=== PATIENT | male | born 1940 | race Caucasian/White ===

== ENCOUNTER → 2022-04-14 | Outpatient (CLI) | payer BC | LOC: RAD 09:45 | DX: R74.8 Abnormal levels of other serum enzymes (principal) ==

== ENCOUNTER → 2023-06-27 | Outpatient (CLI) | payer BC ==
[2023-06-27 10:50] LABS: HEMATOCRIT 47.5 % (42.0-52.0); HEMOGLOBIN 15.9 g/dL (13.5-18.0)
== END ==
LOC: LAB 10:25
PROVIDERS: Family Medicine
DX: E83.119 Hemochromatosis, unspecified (principal)

== ENCOUNTER → 2023-08-02 | Outpatient (CLI) | payer BC ==
[2023-09-21 12:20] LABS: HEMATOCRIT 46.4 % (42.0-52.0); HEMOGLOBIN 15.6 g/dL (13.5-18.0)
== END ==
LOC: LAB 10:35
PROVIDERS: Family Medicine
DX: E83.119 Hemochromatosis, unspecified (principal)

== ENCOUNTER → 2023-08-30 | Outpatient (CLI) | payer BC ==
[2023-08-30 13:18] LABS: HEMOGLOBIN 15.4 g/dL (13.5-18.0)
== END ==
LOC: LAB 13:09
PROVIDERS: Family Medicine
DX: E83.119 Hemochromatosis, unspecified (principal)

== ENCOUNTER → 2023-11-08 | Outpatient (CLI) | payer BC ==
[2023-11-08 11:19] LABS: HEMATOCRIT 44.7 % (42.0-52.0); HEMOGLOBIN 15.2 g/dL (13.5-18.0)
== END ==
LOC: LAB 10:58
PROVIDERS: Family Medicine
DX: E83.119 Hemochromatosis, unspecified (principal)

== ENCOUNTER → 2023-12-05 | Outpatient (CLI) | payer MEDICARE ==
[2023-12-05 12:14] LABS: HEMATOCRIT 45.2 % (42.0-52.0); HEMOGLOBIN 15.1 g/dL (13.5-18.0)
== END ==
LOC: LAB 12:05
PROVIDERS: Family Medicine
DX: E83.119 Hemochromatosis, unspecified (principal)

== ENCOUNTER → 2024-02-08 | Outpatient (CLI) | payer MEDICARE ==
[~2024-02-08] VITALS: Ht 175.3 cm; Wt 86.4 kg
[~2024-02-08] MED LIST: KLONOPIN 1MG1 MG PO
[2024-02-08 15:44] LABS: HEMATOCRIT 47.4 % (42.0-52.0); HEMOGLOBIN 15.8 g/dL (13.5-18.0)
[2024-02-08 15:53] VITALS: BP 173/79
[2024-02-08 16:39] VITALS: BP 144/77
== END ==
LOC: AMSURD 15:04
PROVIDERS: Family Medicine
DX: E83.119 Hemochromatosis, unspecified (principal)

== ENCOUNTER → 2024-03-21 | Outpatient (CLI) | payer MEDICARE ==
[~2024-03-21] VITALS: Ht 175.3 cm; Wt 86.4 kg
[2024-03-21 12:50] VITALS: BP 145/80
[2024-03-21 13:15] LABS: HEMATOCRIT 45.4 % (42.0-52.0); HEMOGLOBIN 15.6 g/dL (13.5-18.0)
--- NOTE | 2024-03-21 13:29 | NUR ---
pt arrived ambulatory with cane for therapeutic phlebotomy. education provided. HGB 15.6 HCT 45.4 AND BP 145/80 PRIOR TO PROCEDURE. #18 INT INSERTED IN RT AC AND LAB DRAWN . TIMEOUT DONE AT 1320 . STARTED PHLEBOTOMY AT 1321. STOPPED AT 1334. total vol withdrawn is 500 ml. BP 131/74 hr 82. Pt denies any lightheadedness. DC'd int. pressure applied for 5 min. and pressure dressing applied. pt ambulates out of facility with cane. steady gait noted.
[2024-03-21 13:44] VITALS: BP 131/74
== END ==
LOC: AMSURD 09:27
PROVIDERS: Family Medicine
DX: E83.119 Hemochromatosis, unspecified (principal)

== ENCOUNTER → 2024-05-02 | Outpatient (CLI) | payer MEDICARE ==
[~2024-05-02] VITALS: Ht 175.3 cm; Wt 86.4 kg
[2024-05-02 13:00] VITALS: BP 150/74
[2024-05-02 13:32] LABS: HEMATOCRIT 44.2 % (42.0-52.0)
[2024-05-02 14:01] VITALS: BP 124/77
== END ==
LOC: AMSURD 12:31
PROVIDERS: Family Medicine
DX: E83.119 Hemochromatosis, unspecified (principal)